=== PATIENT | male | born 1965 | race Caucasian/White ===

== ENCOUNTER → 2017-02-15 | Outpatient (CLI) | payer OTHER ==
--- NOTE | 2017-02-15 13:09 | KCIC ---
PROCEDURE Two-view chest HISTORY COPD. 30-40 year smoking history. Preop hernia repair. COMPARISON None FINDINGS The cardiac silhouette is not enlarged. There is mild opacity in right and left lung bases, best seen on the frontal projection, raising the question of very mild atelectasis or infiltrate. No lobar consolidation. Linear density in the right lower lung compatible with mild atelectasis. No evidence of pneumothorax. Minimal costophrenic angle blunting posteriorly bilaterally. No large pleural effusion. IMPRESSION 1. There subtle faint opacities at both lung bases, significance questionable, but there are no prior studies for comparison. Infiltrate unlikely due to the lack of much opacity on the lateral view, but difficult to completely exclude. 2. Minimal blunting of the posterior costophrenic angles, raising the question of tiny pleural effusions. Electronically signed by: Krish Flowers MD (Feb 15, 2017 13:07:44)
== END | disposition home or self-care (01) ==
LOC: KCIC 10:13
PROVIDERS: ATTEND Physician Assistant Medical
DX: J44.9 Chronic obstructive pulmonary disease, unspecified (principal); Z87.891 Personal history of nicotine dependence
CPT/HCPCS: 71020

== ENCOUNTER 2017-02-28 06:26 | Day surgery (SDC) | payer OTHER ==
[~2017-02-28] VITALS: Ht 180.3 cm; Wt 110.2 kg
[~2017-02-28 06:26] MED LIST: CEFAZOLIN 2GM PREMIX 50 ML IV PRN; FLUT1DIS3 IH; IBUP200C9 PO
[2017-02-28] MEDS ORDERED: PROCHLORPERAZINE 10 MG/2 ML VIAL. IV PRN (07:00)
[2017-02-28] MEDS ORDERED: FENTANYL PF 100 MCG/2 ML VIAL. IV PRN (07:00)
[2017-02-28] MEDS ORDERED: HYDROMORPHONE 2 MG/ML VIAL. IV PRN (07:00)
[2017-02-28] MEDS ORDERED: LIDOCAINE 1% 1 ML SYRINGE. ID PRN (07:00)
[2017-02-28] MEDS ORDERED: ONDANSETRON PF 4 MG/2 ML VIAL. IV PRN (07:00)
[2017-02-28] MEDS ORDERED: BUPIVAC MPF-EPI 0.5%-1:200000 30 ML VIAL. ONE (07:08)
[2017-02-28] MEDS: IV RINGERS,LACTATED 1000ML 1,000 ML IV SCH ×2 (07:11→10:40)
[2017-02-28] MEDS ORDERED: LIDOCAINE 2% 100 MG/5 ML SYRINGE. ONE (07:56)
[2017-02-28] MEDS ORDERED: MIDAZOLAM HCL/PF 2 MG/2 ML VIAL. ONE (07:56)
[2017-02-28] MEDS ORDERED: PROPOFOL 20 ML IV ONE (07:56)
[2017-02-28] MEDS ORDERED: FENTANYL PF 250 MCG/5 ML VIAL. ONE (07:56)
[2017-02-28] MEDS ORDERED: ROCURONIUM 50 MG/5 ML VIAL. ONE ×2 (07:56→09:02)
[2017-02-28] MEDS ORDERED: OXYC-323 PO (08:22)
[2017-02-28] MEDS ORDERED: ONDA4TAB7 PO (08:22)
[2017-02-28] MEDS ORDERED: PHENYLEPHRINE in 0.9% NACL PF 1 MG/10 ML DISP.SYRIN. IV ONE (08:35)
[2017-02-28] MEDS ORDERED: DEXAMETHASONE SOD PHOS 20 MG/5 ML VIAL. ONE (08:53)
[2017-02-28] MEDS ORDERED: ONDANSETRON PF 4 MG/2 ML VIAL. ONE (08:53)
[2017-02-28] MEDS ORDERED: NEOSTIGMINE METHYLSULFATE 5 MG/5 ML SYRINGE. ONE (09:47)
[2017-02-28] MEDS ORDERED: GLYCOPYRROLATE 1 MG/5 ML VIAL. ONE (09:48)
[2017-02-28] MEDS: FENTANYL PF 100 MCG/2 ML VIAL. IV PRN ×2 (10:21→10:42)
[2017-02-28] MEDS: MORPHINE SULFATE 2 MG/ML DISP.SYRIN. IV PRN ×2 (10:22→10:42)
[2017-02-28] MEDS ORDERED: OXYCODONE/APAP 5/325 TABLET. PO ONE (10:45)
[2017-02-28] MEDS ORDERED: OXYCODONE/APAP 5/325 TABLET. ONE (10:52)
[2017-02-28] MEDS ORDERED: ALBUTEROL SULFATE 2.5 MG/3 ML NEBU. ONE (11:54)
[2017-02-28 12:04] VITALS: BP 105/76
[2017-02-28] MEDS ORDERED: ALBUTEROL SULFATE 2.5 MG/3 ML NEBU. NEB ONE (12:15)
--- NOTE | 2017-02-28 13:23 | OP ---
DATE OF SURGERY: 02/28/2017 PREOPERATIVE DIAGNOSES: 1. Right inguinal hernia. 2. Incarcerated umbilical hernia. POSTOPERATIVE DIAGNOSES: 1. Right inguinal hernia. 2. Incarcerated umbilical hernia. PROCEDURES: 1. Laparoscopic right inguinal hernia repair with mesh. 2. Incarcerated umbilical hernia repair. SURGEON: Brian Trinidad M.D. ANESTHESIA: General. ESTIMATED BLOOD LOSS: 25 mL. IV FLUIDS: 650 mL. INDICATIONS: The patient is a 51-year-old male who has a very symptomatic right inguinal hernia as well as an occasionally symptomatic incarcerated umbilical hernia that he would like to have repaired. FINDINGS: He has a large right indirect inguinal hernia, his umbilical hernia was approximately 0.5 cm, the incarcerated contents were preperitoneal fat. DESCRIPTION OF PROCEDURE: After informed consent was obtained, the patient was taken to the operating room and placed in supine position. After adequate induction of general anesthesia, he was prepped and draped in the usual sterile fashion. An infraumbilical skin incision was made with a scalpel and subcutaneous tissue divided with cautery. The umbilical stalk was encircled with a right angle and the dermis of the umbilicus was from the incarcerated hernia sac. The incarcerated hernia was amputated at its base which gained access to the peritoneal cavity. The defect was a 0.5 cm or less. A 10-mm port was then used to dilate up the hernia to allow access for the laparoscopic repair of the right inguinal hernia. At this point, pneumoperitoneum to 15 mmHg was established under direct laparoscopic vision. Two additional ports were placed, both were 5 mm ports placed, one on the left and one on the right side of the midline. The laparoscopic inspection revealed good port placement. No evidence of entry trauma. His liver appeared slightly nodular consistent with his history of hepatitis C and he is likely developing some cirrhosis. A laparoscopic right inguinal hernia repair with mesh was performed and peritoneum was then scored from the ASIS on the right across the midline and a peritoneal flap was developed. In doing so, he had a large defect in the inguinal canal at the indirect space. The peritoneal flap was mobilized so that the dissection was from the midline and then deep to Elbert's ligament. The peritoneal flap was skeletonized well proximal on the cord structures and then laterally the peritoneal flap was dissected as well. This allowed access to the femoral space, direct space, and indirect space. A large piece of 3DMax mesh was brought onto the field and placed in the preperitoneal space. It was positioned so that it had adequate overlap at the femoral space, direct space, and indirect space and the flap was mobilized well enough that it could be reapproximated without shifting or rolling the mesh. The mesh was then secured to the abdominal wall at pubic tubercle, along the rectus muscle medially, along the anterior abdominal wall laterally. No tacks were placed along Elbert's ligament and no tacks were placed deep to the iliopubic tract laterally. The peritoneal flap was then reapproximated with the SECURESTRAP and the large bulky fatty hernia sac was also fixed to the anterior abdominal wall so there would not be a lead point for recurrence. At the completion of the flap closure, the mesh was completely covered. There were no defects or gaping in the peritoneal flap. At this point, the 5-mm ports were removed under direct vision. He had some bleeding from the right-sided port that was controlled with the 0 Vicryl suture using the suture passer. At this point, the port sites were hemostatic. Pneumoperitoneum was desufflated and then the umbilical hernia was approximated with 0 Prolene sutures in an interrupted fashion. The umbilical site was injected with local anesthetic. A nerve block was then performed 1 cm medially and 1 cm inferior to the ASIS on the right side with 5 mL of local anesthetic. The dermis of the umbilicus was tacked back down to the fascia with a 3-0 Vicryl suture. Skin incisions were closed with 4-0 Monocryl in subcuticular fashion. Sterile dressings were placed, which for the umbilicus consisted with Mastisol, Steri-Strips, tonsil ball followed by Tegaderm, while the lateral 5 mm ports were closed with the 4-0 Monocryl as described as well as Mastisol, Steri-Strips and the Band-Aid. He tolerated the procedure well. There were no apparent complications. He was then transferred in stable condition to the recovery room. BRIAN TRINIDAD MD DR: SHANA/sarita JOB#: [id number] / [id number] LORENZO Berrios MD, ELIJAH GAINES
--- NOTE | 2017-03-01 14:03 | PATHOLOGY ---
PATHOLOGY REPORT * * * * * * * * FINAL DIAGNOSIS: Segment of focal mesothelial-lined fibromembranous and fibroadipose tissue, umbilical hernia repair: - Hernia sac showing congestion and focal chronic inflammation. (JPM:; d/t: 03/01/17) REPORT ELECTRONICALLY SIGNED BY: Tony Mehta M.D. DATE/TIME: 03/01/2017 14:02 * * * * * * * * GROSS PATHOLOGY: Received in formalin labeled "Dl Pena and incarcerated umbilical hernia," is a segment of blood-tinged, pink-galindo to yellow-galindo, membranous, and lobulated fibroadipose tissue measuring 3.2 x 2.8 x 1.1 cm. No nodules or lesions are identified. Spinning Machine Operator tissue is submitted in cassette A1. (TTL; 02/28/2017) INITIAL CPT CODE(S): A; 81290 Professional services [place] [place] [address] Technical services performed by [facility] at [address] [place] [address]. SPECIMEN(S) RECEIVED: A.Incarcerated umbilical hernia CLINICAL HISTORY: Right inguinal incarcerated umbilical hernia PATIENT: DL PENA /AGE: 1009/20/1965 (Age: 51) PATIENT #: [id number] ALT CASE #: SPECIMEN COLLECTION DATE: 02/28/2017 SPECIMEN RECEIVED DATE: 02/28/2017 [facility] - [address] [place] [address] - PHONE: [phone] * * * END OF REPORT * * *
== END 2017-02-28 12:40 | disposition home or self-care (01) ==
LOC: SURG 06:26
PROVIDERS: ATTEND Surgery
DX: K40.90 Unilateral inguinal hernia, without obstruction or gangrene, not specified as recurrent (principal); K42.1 Umbilical hernia with gangrene; I10 Essential (primary) hypertension; J44.9 Chronic obstructive pulmonary disease, unspecified; E66.9 Obesity, unspecified; M19.90 Unspecified osteoarthritis, unspecified site; F31.9 Bipolar disorder, unspecified; Z86.19 Personal history of other infectious and parasitic diseases
CPT/HCPCS: 49587; 49650; A4215; C1781; J0690; J0780; J1100; J2250; J2270; J2370; J2405; J2704; J2710; J3010; J3490; J7120

== ENCOUNTER 2017-08-17 10:00 | Inpatient (IN) | payer OTHER ==
[~2017-08-17] VITALS: Ht 180.3 cm; Wt 102.1 kg
[~2017-08-17 10:00] MED LIST changes: -CEFAZOLIN 2GM PREMIX 50 ML IV PRN; +ONDA4TAB7 PO; +OXYC-323 PO
[2017-08-17 12:22] VITALS: BP 136/88
[2017-08-17] MEDS ORDERED: PNEUMOCOCCAL VAX SCREEN BY RX. MC PRN (13:15)
[2017-08-17] MEDS ORDERED: DIPHTH,PERTUSS(ACELL),TET TOX 0.5 ML DISP.SYRIN. VAX IM ONE (13:15)
[2017-08-17] MEDS ORDERED: INFLUENZA VAX SCREEN BY RX. MC PRN (13:15)
[2017-08-17] MEDS ORDERED: IBUPROFEN 600 MG TABLET. PO PRN (13:30)
[2017-08-17] MEDS: HYDROcodone/APAP 5/325MG 1 TAB TABLET PO PRN ×2 (13:42→19:29)
[2017-08-17] MEDS: NICOTINE 21MG PATCH. TD SCH (13:43)
[2017-08-17] MEDS ORDERED: FLU VACC QS2017-18 (36MOS+)/PF 0.5 ML SYRINGE. VAX IM ONE (14:00)
[2017-08-17] MEDS ORDERED: PNEUMOC CONJ VACC 23-VALENT 0.5 ML VIAL. VAX IM ONE (14:00)
[2017-08-17 14:09] LABS: BASO # 0.1 x10^3/uL (0.0-0.2); BASO % 1 % (0-3); EOS % 3 % (0-3); HEMATOCRIT 44.9 % (39.0-53.0); HEMOGLOBIN 15.2 g/dL (13.0-17.5); LYMPH # 1.8 x10^3/uL (1.0-4.8); LYMPH % 24 % (24-48); MEAN CORPUSCULAR HEMOGLOBIN 31 pg (25-35); MEAN CORPUSCULAR HGB CONC 34 g/dL (31-37); MEAN CORPUSCULAR VOLUME 92 fL (79-100); MONO % 10 % (0-9); NEUT % 62 % (31-73); PLATELET COUNT 178 x10^3/uL (140-400); RED BLOOD COUNT 4.89 x10^6/uL (4.30-5.70); RED CELL DISTRIBUTION WIDTH 14.4 % (11.5-14.5); WHITE BLOOD COUNT 7.5 x10^3/uL (4.0-11.0)
[2017-08-17 14:30] LABS: ALBUMIN 3.2 g/dL (3.4-5.0); ALBUMIN/GLOBULIN RATIO 0.8 (1.0-1.7); CALCIUM 8.7 mg/dL (8.5-10.1); CREATININE 0.9 mg/dL (0.7-1.3); GFR 88.6; POTASSIUM 3.9 mmol/L (3.5-5.1); TOTAL BILIRUBIN 0.4 mg/dL (0.2-1.0); TOTAL PROTEIN 7.1 g/dL (6.4-8.2)
[2017-08-17 15:00] VITALS: BP 133/78
--- NOTE | 2017-08-17 15:05 | HP ---
ADMIT DATE: 08/17/2017 CHIEF COMPLAINT: Painful leg lesions. HISTORY OF PRESENT ILLNESS: A 51-year-old white male was doing well until he got some what he presumed were bug bites about a week ago. They developed increasing pain since that time and drainage and he has been expressing some purulent drainage particularly from the lesion on his right knee. He was seen in the office on the day of admission with very aggressive red furuncles and because of the concern of early sepsis, he was admitted for IV vancomycin. He had some prior similar bites, milder in both of his arms about a month ago that resolved without antibiotic treatment. PAST MEDICAL HISTORY: He takes HCTZ as his only daily medication. He uses Advair p.r.n. He has no drug allergies. No history of diabetes or other significant known medical problems. He gives a history of bipolar disorder, but is on no psychiatric meds. No know allergies. Last tetanus is unknown. SOCIAL HISTORY: Smokes a pack a day. He is single as a partner, currently employed. He is a nondrinker. FAMILY HISTORY: Unremarkable. REVIEW OF SYSTEMS: No other specific complaints at this time. PHYSICAL EXAMINATION: ENT: All within normal limits. NECK: No masses, nodes, bruits, or adenopathy. LUNGS: Clear with mild tachypnea. CARDIOVASCULAR: Regular rate. No irregular beat, murmur or tachycardia. ABDOMEN: Benign. No megaly masses or nodes. EXTREMITIES: He has several inflamed, red, tender open draining lesions, the worse being above the right knee and 2-3 on the right lower leg and 2 on the left leg. There is no streaking or sign of abscess formation and no significant adenopathy is noted. The upper body is largely spared. NEUROLOGIC: Physiologic. EXTREMITIES: Good pedal pulses and radial pulses, 1+ clubbing. NEUROLOGIC: Physiologic. ASSESSMENT: Furunculitis and cellulitis with early abscess formation in both lower extremities, likely Staphylococcus aureus is bacterial of origin. PLAN: Treat his MRSA with IV vancomycin and appropriate doses. Cultures of wounds have been appropriate. Labs pending at this time. Tetanus prophylaxis as well. LORENZO BLACKBURN MD DR: ASAD/sarita JOB#: [id number] / [id number]
[2017-08-17] MEDS ORDERED: VANCOMYCIN 1.5 GM in IV NORMAL SALINE 500ML BAG 500 ML IV SCH (18:30)
[2017-08-17] MEDS ORDERED: VANCOMYCIN 2 GM in IV NORMAL SALINE 500ML BAG 500 ML IV ONE (18:30)
[2017-08-17] MEDS: VANCOMYCIN PER PHARMACY MC PRN (19:07)
[2017-08-17 19:25] VITALS: BP 122/81
[2017-08-17 23:25] VITALS: BP 115/72
[2017-08-18 03:30] VITALS: BP 113/73
[2017-08-18 07:00] VITALS: BP 102/71
[2017-08-18] MEDS ORDERED: VANCOMYCIN 1.75 GM in IV NORMAL SALINE 500ML BAG 500 ML IV SCH (08:00)
[2017-08-18] MEDS: HYDROcodone/APAP 5/325MG 1 TAB TABLET PO PRN (08:10)
[2017-08-18] MEDS: NICOTINE 21MG PATCH. TD SCH (08:10)
--- NOTE | 2017-08-18 08:20 | PDOC ---
Provider Note Provider Note afeb, vss, a1c ok- wounds feel a little less sore, less red- R knee wound may need debridw, will add juan j nelson, LORENZO Beckman MD Aug 18, 2017 08:20
[2017-08-18] MEDS: VANCOMYCIN PER PHARMACY MC PRN (10:53)
[2017-08-18 11:00] VITALS: BP 109/76
[2017-08-18 15:00] VITALS: BP 120/62
--- NOTE | 2017-08-19 09:49 | PDOC ---
Provider Note Provider Note [id number] LORENZO BLACKBURN MD Aug 19, 2017 09:49
--- NOTE | 2017-08-19 20:13 | DS ---
DATE OF DISCHARGE: 08/18/2017 DATE OF ADMISSION: 08/17/2017. DATE OF DISCHARGE: The patient left against medical advice on 08/18/2017. HOSPITAL SUMMARY: The patient was admitted with multiple abscesses on both lower extremities. CBC was unremarkable. Chemistry profile showed hemoglobin A1c of 5.8, and rest of labs was unremarkable as well. Urine drug screen was not done. Blood cultures had no growth. Culture of the wound grew out MRSA sensitive to tetracycline, sulfa, and vancomycin. He was started on IV vancomycin and was given approximately 3 doses, and then, had to clinically improve, but decided to leave against medical advice without giving a good reason or explanation. He understood the risks of leaving against medical advice being increased, progression of infection or perhaps with progression to bacteremia, septicemia, endocarditis, or other serious diseases that could lead to severe morbidity and even mortality. He did not request or receive any medications including antibiotics when he left the hospital, and I have been unable to contact him as of 08/19/2017. PROGNOSIS: Unknown. LORENZO BLACKBURN MD DR: ASAD/sarita JOB#: [id number] / [id number]
== END 2017-08-18 17:30 | disposition left against medical advice (07) | DRG 603 ==
LOC: 4 NORTH 11:45
PROVIDERS: ADMIT Family Medicine; ATTEND Family Medicine
DX: L03.116 Cellulitis of left lower limb (principal); S81.001A Unspecified open wound, right knee, initial encounter; F31.9 Bipolar disorder, unspecified; L03.115 Cellulitis of right lower limb; F17.210 Nicotine dependence, cigarettes, uncomplicated; L02.426 Furuncle of left lower limb; L02.425 Furuncle of right lower limb; B95.62 Methicillin resistant Staphylococcus aureus infection as the cause of diseases classified elsewhere; Z23 Encounter for immunization; Y93.89 Activity, other specified; Y92.89 Other specified places as the place of occurrence of the external cause; Y99.8 Other external cause status; W57.XXXA Bitten or stung by nonvenomous insect and other nonvenomous arthropods, initial encounter; L02.416 Cutaneous abscess of left lower limb; L02.415 Cutaneous abscess of right lower limb
CPT/HCPCS: 36415; 80053; 83036; 85025; 87040; 87071; 87075; 87186; 87205; 90686; 90715; 90732; J3370; J7040

== ENCOUNTER 2019-03-24 05:47 | Emergency (ER) | payer OTHER ==
[~2019-03-24] VITALS: Ht 182.9 cm; Wt 127.0 kg
[~2019-03-24 05:47] MED LIST changes: -OXYC-323 PO; +OXYC1TAB15 PO
[2019-03-24 06:10] VITALS: BP 156/86
[2019-03-24] MEDS ORDERED: DEXAMETHASONE 4 MG TABLET PO ONE (06:30)
--- NOTE | 2019-03-24 06:36 | RAD ---
CHEST PA LATERAL CLINICAL INDICATION: COUGH COMPARISON: 02/15/2017 FINDINGS: Heart is normal in size. Right infrahilar patchy opacities seen. Mild patchy opacity in the left lung base as well. No pneumothorax or large pleural effusion. Visualized bony thorax within normal limits. IMPRESSION: Right infrahilar pneumonia. Follow-up imaging recommended after medical therapy to ensure resolution. Electronically signed by: Oscar Wall DO (03/24/2019 6:33 AM) [facility]
[2019-03-24] MEDS ORDERED: LEVO750T31 PO (06:48)
[2019-03-24] MEDS ORDERED: PRED20TA PO (06:48)
--- NOTE | 2019-03-24 06:49 | PHYS DOC ---
Past Medical History Past Medical History: COPD, Hypertension Past Surgical History: Knee Replacement, Other Additional Past Surgical Histo: BILATERAL KNEE, HERNIA REPAIR X 2 Alcohol Use: Rarely Drug Use: None Adult General Chief Complaint Chief Complaint: FLU SYMPTOM HPI HPI Patient is a 53 year old [f__sex] who presents with [] Review of Systems Review of Systems Constitutional: Denies fever or chills [] Eyes: Denies change in visual acuity, redness, or eye pain [] HENT: Denies nasal congestion or sore throat [] Respiratory: Denies cough or shortness of breath [] Cardiovascular: No additional information not addressed in HPI [] GI: Denies abdominal pain, nausea, vomiting, bloody stools or diarrhea [] : Denies dysuria or hematuria [] Musculoskeletal: Denies back pain or joint pain [] Integument: Denies rash or skin lesions [] Neurologic: Denies headache, focal weakness or sensory changes [] Endocrine: Denies polyuria or polydipsia [] All other systems were reviewed and found to be within normal limits, except as documented in this note. Current Medications Current Medications Current Medications Medications (Trade) Dose Ordered Sig/Samia Start Time Stop Time Status Last Admin Dose Admin Dexamethasone (Decadron) 10 mg 1X ONCE 03/24/19 06:30 03/24/19 06:31 DC 03/24/19 06:21 10 MG Levofloxacin (Levaquin) 750 mg 1X ONCE 03/24/19 07:00 03/24/19 07:01 Allergies Allergies Allergies Coded Allergies Type Severity Reaction Last Updated Verified I S O L A T I O N *CONTACT* Allergy Unknown 08/21/17 Yes No Known Medication Allergies Allergy Unknown 08/21/17 Yes Physical Exam Physical Exam Constitutional: Well developed, well nourished, no acute distress, non-toxic appearance. [] HENT: Normocephalic, atraumatic, bilateral external ears normal, oropharynx moist, no oral exudates, nose normal. [] Eyes: PERRLA, EOMI, conjunctiva normal, no discharge. [] Neck: Normal range of motion, no tenderness, supple, no stridor. [] Cardiovascular:Heart rate regular rhythm, no murmur [] Lungs & Thorax: Bilateral breath sounds clear to auscultation [] Abdomen: Bowel sounds normal, soft, no tenderness, no masses, no pulsatile m asses. [] Skin: Warm, dry, no erythema, no rash. [] Back: No tenderness, no CVA tenderness. [] Extremities: No tenderness, no cyanosis, no clubbing, ROM intact, no edema. [] Neurologic: Alert and oriented X 3, normal motor function, normal sensory function, no focal deficits noted. [] Psychologic: Affect normal, judgement normal, mood normal. [] Current Patient Data Vital Signs Vital Signs Date Time Temp Pulse Resp B/P (MAP) Pulse Ox O2 Delivery O2 Flow Rate FiO2 03/24/19 06:10 99.4 101 20 156/86 (109) 93 Room Air 99.4 EKG EKG [] Radiology/Procedures Radiology/Procedures PROCEDURE: CHEST PA & LATERAL CHEST PA LATERAL CLINICAL INDICATION: COUGH COMPARISON: 02/15/2017 FINDINGS: Heart is normal in size. Right infrahilar patchy opacities seen. Mild patchy opacity in the left lung base as well. No pneumothorax or large pleural effusion. Visualized bony thorax within normal limits. IMPRESSION: Right infrahilar pneumonia. Follow-up imaging recommended after medical therapy to ensure resolution. Electronically signed by: Oscar Wall DO (03/24/2019 6:33 AM) [facility] Course & Med Decision Making Course & Med Decision Making Pertinent Labs and Imaging studies reviewed. (See chart for details) [] Dragon Disclaimer Dragon Disclaimer This electronic medical record was generated, in whole or in part, using a voice recognition dictation system. Departure Departure Impression: Primary Impression: Pneumonia Disposition: 01 HOME, SELF-CARE Condition: STABLE Referrals: LORENZO BLACKBURN MD (PCP) Patient Instructions: Pneumonia, Adult, Kqhe-[id number] Scripts Albuterol Sulfate (Proair Hfa) 8.5 Gm Hfa.aer.ad 1 PUFF INH PRN Q6HRS PRN for WHEEZING, #1 INHALER Prov: SHEREE BARRAZA DO 03/24/19 Prednisone (PREDNISONE) 20 Mg Tablet 2 TAB PO DAILY, #8 TAB Start this medication tomorrow, Sunday03/25/19 Prov: SHEREE BARRAZA DO 03/24/19 Levofloxacin (LEVAQUIN) 750 Mg Tablet 1 TAB PO DAILY, #7 TAB Prov: SHEREE BARRAZA DO 03/24/19 Problem Qualifiers Primary Impression: Pneumonia Pneumonia type: due to unspecified organism Laterality: right Lung location: unspecified part of lung Qualified Codes: J18.9 - Pneumonia, unspecified organism SHEREE BARRAZA DO Mar 24, 2019 06:49
[2019-03-24 06:53] LABS: INFLUENZA A PATIENT NEGATIVE (NEGATIVE); INFLUENZA B PATIENT NEGATIVE (NEGATIVE)
[2019-03-24] MEDS ORDERED: ALBU2.5V8 INH (06:53)
== END 2019-03-24 07:00 | disposition home or self-care (01) ==
LOC: ER 05:47
DX: J18.9 Pneumonia, unspecified organism (principal); J44.9 Chronic obstructive pulmonary disease, unspecified; I10 Essential (primary) hypertension; Z91.041 Radiographic dye allergy status
CPT/HCPCS: 71046; 87804; 99285; J8540

== ENCOUNTER 2019-09-24 20:06 | Emergency (ER) | payer MEDICAID, OTHER ==
[~2019-09-24] VITALS: Ht 180.3 cm; Wt 117.9 kg
[~2019-09-24 20:06] MED LIST changes: +ALBU2.5V8 INH; +LEVO750T31 PO; +PRED20TA PO
[2019-09-24 20:23] VITALS: BP 153/107
[2019-09-24] MEDS ORDERED: HYDROcodone/APAP 7.5/325MG 1 TAB TABLET PO ONE (20:45)
--- NOTE | 2019-09-24 21:37 | RAD ---
Exam: Left knee 3 views. Left tibia and fibula 2 views. Left ankle 3 views INDICATION: Pain TECHNIQUE: Frontal, lateral and oblique views of the left knee and left ankle. Frontal and lateral views of the left tibia Comparisons: None FINDINGS: Knee: Bone mineralization is normal. No acute or healed fractures. Soft tissues are unremarkable. There is severe tricompartmental osteophytic change at the left knee. Left tibia and fibula: Bone mineralization is normal. No acute or healed fractures. Soft tissues are unremarkable. Joint spaces are well-maintained. Ankle: There is diffuse soft tissue swelling at the ankle. No acute fractures identified. Bone mineralization is normal. Cortical irregularity at the superior aspect of the navicular bone. IMPRESSION: 1. Soft tissue swelling at the ankle with cortical irregularity at superior aspect of the navicular bone. Correlate with point tenderness for nondisplaced fracture. 2. No acute osseous abnormality of the left tibia and fibula. 3. No acute osseous abnormality of the left knee. Electronically signed by: Marco Hester MD (09/24/2019 9:34 PM) [facility]
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
[2019-09-24] MEDS ORDERED: NEOMY/BACITR/POLYMYXIN OINT PACKET. TP ONE (22:00)
[2019-09-24] MEDS ORDERED: HYDR-2761 PO (22:02)
[2019-09-24] MEDS ORDERED: MUPI22OI2 TP (22:02)
== END 2019-09-24 22:14 | disposition home or self-care (01) ==
LOC: ER 20:06
DX: T24.102A Burn of first degree of unspecified site of left lower limb, except ankle and foot, initial encounter (principal); M25.572 Pain in left ankle and joints of left foot; M79.662 Pain in left lower leg; M25.562 Pain in left knee; I10 Essential (primary) hypertension; J44.9 Chronic obstructive pulmonary disease, unspecified; Z98.890 Other specified postprocedural states; Z96.653 Presence of artificial knee joint, bilateral; V89.9XXA Person injured in unspecified vehicle accident, initial encounter; Y93.89 Activity, other specified; Y92.488 Other paved roadways as the place of occurrence of the external cause; Y99.8 Other external cause status
CPT/HCPCS: 73562; 73590; 73610; 99284